=== PATIENT | female | born 1980 | race Caucasian/White ===

== ENCOUNTER → 2019-11-27 | Outpatient (CLI) | payer OTHER ==
[~2019-11-27] MED LIST: ASPIR-LOW81 MG PO; COLACE 100100 MG/CAP PO; FERROUS SU325 MG/TAB PO; PRENATAL VITAMI1 TA5 PO
== END ==
LOC: MC.RAD 09:45
DX: Z12.31 Encounter for screening mammogram for malignant neoplasm of breast (principal); Z98.82 Breast implant status